=== PATIENT | male | born 1970 | race Caucasian/White ===

== ENCOUNTER 2019-12-28 04:06 | Inpatient (IN) ==
[2019-12-28] MEDS ORDERED: *HR* Dextrose 50 % in Water (Syg) 50 ML SYRINGE IVP PRN (05:17)
[2019-12-28] MEDS ORDERED: Naloxone 0.4 MG/ML INJ IVP PRN ×2 (05:17→06:24)
[2019-12-28] MEDS ORDERED: Insulin Human Regular 100 UNIT in 0.9 % Sodium Chloride 100 ML IVC SCH ×3 (05:30→16:02)
[2019-12-28] MEDS ORDERED: *HR* Heparin 5,000 UNIT/ML VIAL SQ SCH (06:00)
[2019-12-28] MEDS ORDERED: Piperacillin/Tazobactam 3.375 GM in 0.9 % Sodium Chloride Mini Bag 100 ML IVPB SCH (06:11)
[2019-12-28 07:05] LABS: Basophils % 0.2 %; Eosinophils % 0.2 %; Hematocrit 41.8 % (37.5-50.1); Hemoglobin 13.8 g/dL (12.9-16.9); Immature Granulocytes % 0.7 % (0-4); Lymphocytes % 6.1 %; Mean Corpuscular Hemoglobin 31.7 pg (28.0-33.3); Mean Corpuscular Volume 96.1 fL (83.0-100.0); Monocytes % 6.3 %; Neutrophils # 14.1 K/mcL (1.6-8.9); Platelet Count 165 K/mcL (140-400); Red Blood Count 4.35 M/mcL (4.19-5.50); Red Cell Distribution Width 13.2 % (11.5-14.5); Segmented Neutrophils % 86.5 %; White Blood Count 16.3 K/mcL (4.3-11.1)
[2019-12-28 07:09] LABS: VBG Ionized Calcium 0.64 mmol/L (1.15-1.35)
[2019-12-28] MEDS: Pantoprazole 40 MG VIAL IVP SCH ×2 (07:10→17:09)
[2019-12-28 07:11] LABS: INR 1.2; Prothrombin Time 14.1 Seconds (9.4-12.1)
[2019-12-28] MEDS: Ringers Solution, Lactated 1,000 ML IVC SCH ×4 (07:12→23:57)
[2019-12-28] MEDS: Calcium Gluconate 1gm/50mL 1 GM/50 ML BAG IVPB SCH ×6 (07:17→18:07)
[2019-12-28 07:30] LABS: Alanine Aminotransferase 31 Units/L (7-52); Albumin 3.1 g/dL (3.5-5.7); Albumin/Globulin Ratio 1.1 (1.1-2.2); Alkaline Phosphatase 58 Units/L (34-104); Aspartate Amino Transferase 26 Units/L (13-39); BUN/Creatinine Ratio 14 (6-26); Bilirubin,Total 1.3 mg/dL (0.3-1.0); Blood Urea Nitrogen 10 mg/dL (6-20); Calcium 4.8 mg/dL (8.6-10.3); Carbon Dioxide 22 mEq/L (23-29); Chloride 100 mEq/L (98-107); Globulin 2.8 g/dL (2.4-3.5); Glucose 165 mg/dL (70-105); Osmolality,Calculated 277 (280-300); Phosphorous 1.2 mg/dL (2.7-4.5); Sodium 132 mEq/L (136-145); Total Protein 5.9 g/dL (6.4-8.9); eGFR For African Americans > 60 (> 60); eGFR For Non-African Americans > 60 (> 60)
[2019-12-28] MEDS: Piperacillin/Tazobactam 3.375 GM in 0.9 % Sodium Chloride Mini Bag 100 ML IVPB SCH ×3 (08:35→23:57)
[2019-12-28] MEDS ORDERED: D10% in Water 500 ML IVC SCH ×6 (09:15→13:00)
[2019-12-28] MEDS ORDERED: Potassium Phosphate 44 MEQ in 0.9 % Sodium Chloride 250 ML IVPB ONE (09:18)
[2019-12-28 09:30] LABS: C-Reactive Protein 285 mg/L (Less than 10)
[2019-12-28 10:21] LABS: Color,Urine Orange (Yellow)
[2019-12-28 10:23] LABS: Hyaline Casts,Urine None Seen per lpf (None-Few)
[2019-12-28 10:31] LABS: Clarity,Urine Slightly Hazy (Clear)
[2019-12-28 10:52] LABS: Bacteria,Urine Few per hpf (None-Few); Squamous Epithelial Cell,Urine Few per lpf (None-Few); WBC,Urine 0-3 per hpf (0-3)
[2019-12-28 11:44] LABS: ABG Base Excess -2 mEq/L (-2 to 3); ABG HCO3 23 mEq/L (21-27); ABG Oxygen Saturation 95 % (95-98); ABG PCO2 38 mmHg (35-45); ABG PO2 77 mmHg (85-104); ABG TCO2 24 mEq/L (20-26)
[2019-12-28] MEDS ORDERED: Ringers Solution, Lactated 1,000 ML IVC SCH (12:51)
[2019-12-28] MEDS: D10% in Water 500 ML IVC SCH ×3 (13:23→22:30)
[2019-12-28 13:29] LABS: Carbon Dioxide 20 mEq/L (23-29); Chloride 102 mEq/L (98-107); Chol/HDL Ratio 8.8 (0-4.9); Cholesterol 246 mg/dL (< 200); HDL Cholesterol 28 mg/dL (40-59); Potassium 3.4 mEq/L (3.5-5.1); Sodium 131 mEq/L (136-145); Triglycerides 779 mg/dL (< 150)
[2019-12-28 13:30] LABS: Troponin I < 0.03 ng/mL (< 0.04)
[2019-12-28 14:17] LABS: Lactate Dehydrogenase 458 Units/L (140-271)
[2019-12-28 14:39] LABS: BUN/Creatinine Ratio 14 (6-26); Blood Urea Nitrogen 9 mg/dL (6-20); Calcium 5.7 mg/dL (8.6-10.3); Glucose 124 mg/dL (70-105); Lipase 332 Units/L (11-82); Magnesium 1.6 mg/dL (1.6-2.6); Osmolality,Calculated 272 (280-300); eGFR For African Americans > 60 (> 60); eGFR For Non-African Americans > 60 (> 60)
[2019-12-28] MEDS ORDERED: *HR* LORazepam 2 MG/ML VIAL IVP PRN ×3 (16:10)
[2019-12-28] MEDS: Vitamin B Complex/Vit C/Vit E 1 EACH TABLET PO SCH (16:31)
[2019-12-28] MEDS: Thiamine (B-1) 100 MG TABLET PO SCH (16:31)
[2019-12-28] MEDS: Folic Acid 1 MG TABLET PO SCH (16:31)
[2019-12-28 18:28] LABS: Adenovirus Not Detected (Not Detect); Bordetella Pertussis Not Detected (Not Detect); Chlamydophila pneumoniae Not Detected (Not Detect); Coronavirus 229E Not Detected (Not Detect); Coronavirus HKU1 Not Detected (Not Detect); Coronavirus NL63 Not Detected (Not Detect); Coronavirus OC43 Not Detected (Not Detect); Human Metapneumovirus Not Detected (Not Detect); Human Rhinovirus/Enterovirus Not Detected (Not Detect); Influenza A Subtype 2009 H1 Not Detected (Not Detect); Influenza B Not Detected (Not Detect); Mycoplasma pneumoniae Not Detected (Not Detect); Parainfluenza Virus 1 Not Detected (Not Detect); Parainfluenza Virus 2 Not Detected (Not Detect); Parainfluenza Virus 3 Not Detected (Not Detect); Parainfluenza Virus 4 Not Detected (Not Detect); Respiratory Syncytial Virus Not Detected (Not Detect)
[2019-12-28 19:36] LABS: VBG Ionized Calcium 0.73 mmol/L (1.15-1.35)
[2019-12-28 19:54] LABS: BUN/Creatinine Ratio 12 (6-26); Blood Urea Nitrogen 8 mg/dL (6-20); Calcium 5.9 mg/dL (8.6-10.3); Carbon Dioxide 21 mEq/L (23-29); Chloride 100 mEq/L (98-107); Glucose 150 mg/dL (70-105); Magnesium 1.4 mg/dL (1.6-2.6); Osmolality,Calculated 271 (280-300); Phosphorous 1.6 mg/dL (2.7-4.5); Sodium 130 mEq/L (136-145); eGFR For African Americans > 60 (> 60); eGFR For Non-African Americans > 60 (> 60)
[2019-12-28] MEDS ORDERED: Calcium Gluconate 1,000 MG/10 ML VIAL IVPB ONE (19:59)
[2019-12-28] MEDS ORDERED: Potassium Chloride 40 MEQ, Lidocaine 1% 2 ML in 0.9 % Sodium Chloride 500 ML IVPB ONE (20:06)
[2019-12-28] MEDS ORDERED: Calcium Gluconate 1gm/50mL 1 GM/50 ML BAG IVPB ONE (20:29)
[2019-12-29] MEDS: Calcium Gluconate 1gm/50mL 1 GM/50 ML BAG IVPB SCH ×7 (01:57→23:35)
[2019-12-29] MEDS: D10% in Water 500 ML IVC SCH (02:00)
[2019-12-29 04:57] LABS: Basophils % 0.3 %; Eosinophils # 0.1 K/mcL (0.0-0.6); Eosinophils % 1.2 %; Hematocrit 37.3 % (37.5-50.1); Immature Granulocytes % 0.5 % (0-4); Lymphocytes % 8.4 %; Mean Corpuscular HGB Conc 32.2 g/dL (31.6-35.5); Mean Corpuscular Hemoglobin 31.7 pg (28.0-33.3); Mean Corpuscular Volume 98.4 fL (83.0-100.0); Mean Platelet Volume 9.8 fL (9.4-12.4); Monocytes # 0.8 K/mcL (0.0-1.3); Monocytes % 6.8 %; Neutrophils # 9.9 K/mcL (1.6-8.9); Platelet Count 173 K/mcL (140-400); Red Blood Count 3.79 M/mcL (4.19-5.50); Red Cell Distribution Width 13.3 % (11.5-14.5); Segmented Neutrophils % 82.8 %
[2019-12-29 04:57] LABS: VBG Ionized Calcium 0.83 mmol/L (1.15-1.35)
[2019-12-29 05:12] LABS: BUN/Creatinine Ratio 9 (6-26); Blood Urea Nitrogen 6 mg/dL (6-20); Calcium 6.1 mg/dL (8.6-10.3); Carbon Dioxide 23 mEq/L (23-29); Chloride 98 mEq/L (98-107); Glucose 165 mg/dL (70-105); Magnesium 2.2 mg/dL (1.6-2.6); Osmolality,Calculated 271 (280-300); Potassium 3.3 mEq/L (3.5-5.1); Sodium 130 mEq/L (136-145); eGFR For African Americans > 60 (> 60); eGFR For Non-African Americans > 60 (> 60)
[2019-12-29] MEDS ORDERED: Potassium Chloride 10 MEQ in D5% in 0.9% NACL 1,000 ML IVC SCH (05:15)
[2019-12-29 05:18] LABS: Phosphorous 1.9 mg/dL (2.7-4.5)
[2019-12-29 05:25] LABS: Platelet Estimate Decreased (Normal)
[2019-12-29] MEDS ORDERED: 0.9 % Sodium Chloride w KCl 20 MEQ/1,000 ML MLS IVC SCH (05:30)
[2019-12-29] MEDS ORDERED: 0.9 % Sodium Chloride w KCl 40 MEQ/1,000 ML MLS IVC SCH (05:30)
[2019-12-29] MEDS: Pantoprazole 40 MG VIAL IVP SCH ×2 (05:46→16:07)
[2019-12-29] MEDS: Fenofibrate 54 MG TABLET PO SCH (06:41)
[2019-12-29] MEDS ORDERED: Dextrose Gel 15 GM/37.5 ML TUBE PO PRN ×2 (06:44)
[2019-12-29] MEDS ORDERED: D5% in Water 1,000 ML IVC PRN (06:44)
[2019-12-29] MEDS ORDERED: *HR* Dextrose 50 % in Water (Syg) 50 ML SYRINGE IVP PRN (06:44)
[2019-12-29] MEDS: Thiamine (B-1) 100 MG TABLET PO SCH (08:40)
[2019-12-29] MEDS: Piperacillin/Tazobactam 3.375 GM in 0.9 % Sodium Chloride Mini Bag 100 ML IVPB SCH ×3 (08:40→23:36)
[2019-12-29] MEDS: Vitamin B Complex/Vit C/Vit E 1 EACH TABLET PO SCH (08:40)
[2019-12-29] MEDS: Insulin LISPRO 300 UNITS/3 ML VIAL SQ SCH ×3 (08:40→16:06)
[2019-12-29] MEDS: Folic Acid 1 MG TABLET PO SCH (08:42)
[2019-12-29] MEDS ORDERED: Potassium Phosphate 44 MEQ in 0.9 % Sodium Chloride 250 ML IVPB ONE ×2 (08:47→22:30)
[2019-12-29 15:23] LABS: VBG Ionized Calcium 0.98 mmol/L (1.15-1.35)
[2019-12-29 15:36] LABS: Magnesium 1.9 mg/dL (1.6-2.6); Potassium 3.4 mEq/L (3.5-5.1)
[2019-12-29 20:48] LABS: VBG Ionized Calcium 0.96 mmol/L (1.15-1.35)
[2019-12-29 21:06] LABS: BUN/Creatinine Ratio 8 (6-26); Blood Urea Nitrogen 5 mg/dL (6-20); Calcium 6.9 mg/dL (8.6-10.3); Carbon Dioxide 24 mEq/L (23-29); Chloride 99 mEq/L (98-107); Glucose 146 mg/dL (70-105); Osmolality,Calculated 274 (280-300); Phosphorous 1.4 mg/dL (2.7-4.5); Potassium 3.3 mEq/L (3.5-5.1); Sodium 132 mEq/L (136-145); eGFR For African Americans > 60 (> 60); eGFR For Non-African Americans > 60 (> 60)
[2019-12-29] MEDS: Ringers Solution, Lactated 1,000 ML IVC SCH (22:43)
[2019-12-29] MEDS ORDERED: Calcium Gluconate 1,000 MG/10 ML VIAL IVPB SCH (22:45)
[2019-12-30] MEDS: Calcium Gluconate 1gm/50mL 1 GM/50 ML BAG IVPB SCH ×3 (00:06→01:50)
[2019-12-30 04:58] LABS: Basophils % 0.2 %; Eosinophils # 0.2 K/mcL (0.0-0.6); Eosinophils % 1.6 %; Hematocrit 33.2 % (37.5-50.1); Hemoglobin 10.7 g/dL (12.9-16.9); Immature Granulocytes % 0.8 % (0-4); Lymphocytes # 0.9 K/mcL (0.6-4.6); Lymphocytes % 8.7 %; Mean Corpuscular HGB Conc 32.2 g/dL (31.6-35.5); Mean Corpuscular Volume 99.4 fL (83.0-100.0); Mean Platelet Volume 9.2 fL (9.4-12.4); Monocytes % 10.5 %; Neutrophils # 7.7 K/mcL (1.6-8.9); Platelet Count 169 K/mcL (140-400); Red Blood Count 3.34 M/mcL (4.19-5.50); Red Cell Distribution Width 13.3 % (11.5-14.5); Segmented Neutrophils % 78.2 %; White Blood Count 9.8 K/mcL (4.3-11.1)
[2019-12-30 05:11] LABS: VBG Ionized Calcium 1.05 mmol/L (1.15-1.35)
[2019-12-30 05:17] LABS: BUN/Creatinine Ratio 9 (6-26); Blood Urea Nitrogen 5 mg/dL (6-20); Calcium 7.4 mg/dL (8.6-10.3); Carbon Dioxide 25 mEq/L (23-29); Chloride 98 mEq/L (98-107); Glucose 142 mg/dL (70-105); Magnesium 1.9 mg/dL (1.6-2.6); Osmolality,Calculated 272 (280-300); Phosphorous 1.9 mg/dL (2.7-4.5); Potassium 3.2 mEq/L (3.5-5.1); Sodium 131 mEq/L (136-145); eGFR For African Americans > 60 (> 60); eGFR For Non-African Americans > 60 (> 60)
[2019-12-30 05:19] LABS: Platelet Estimate Decreased (Normal)
[2019-12-30] MEDS: Pantoprazole 40 MG VIAL IVP SCH ×2 (06:01→18:18)
[2019-12-30] MEDS ORDERED: Potassium Phosphate 44 MEQ in 0.9 % Sodium Chloride 250 ML IVPB ONE ×2 (07:29→21:17)
[2019-12-30] MEDS: Vitamin B Complex/Vit C/Vit E 1 EACH TABLET PO SCH (08:44)
[2019-12-30] MEDS: Fenofibrate 54 MG TABLET PO SCH (08:44)
[2019-12-30] MEDS: Folic Acid 1 MG TABLET PO SCH (08:44)
[2019-12-30] MEDS: *HR* Enoxaparin 40 MG/0.4 ML SYRINGE SQ SCH (08:44)
[2019-12-30] MEDS: Thiamine (B-1) 100 MG TABLET PO SCH (08:44)
[2019-12-30] MEDS: Piperacillin/Tazobactam 3.375 GM in 0.9 % Sodium Chloride Mini Bag 100 ML IVPB SCH ×2 (08:45→15:53)
[2019-12-30] MEDS: Insulin LISPRO 300 UNITS/3 ML VIAL SQ SCH ×3 (09:04→16:09)
[2019-12-30 20:57] LABS: BUN/Creatinine Ratio 10 (6-26); Blood Urea Nitrogen 6 mg/dL (6-20); Calcium 7.6 mg/dL (8.6-10.3); Carbon Dioxide 28 mEq/L (23-29); Chloride 95 mEq/L (98-107); Glucose 154 mg/dL (70-105); Magnesium 1.9 mg/dL (1.6-2.6); Osmolality,Calculated 269 (280-300); Phosphorous 1.8 mg/dL (2.7-4.5); Potassium 3.1 mEq/L (3.5-5.1); Sodium 129 mEq/L (136-145); eGFR For African Americans > 60 (> 60); eGFR For Non-African Americans > 60 (> 60)
[2019-12-30] MEDS ORDERED: Potassium Chloride 40 MEQ, Lidocaine 1% 2 ML in 0.9 % Sodium Chloride 500 ML IVPB ONE (21:17)
[2019-12-30] MEDS ORDERED: 0.9 % Sodium Chloride 1,000 ML IVC SCH ×2 (21:30→21:59)
[2019-12-30] MEDS ORDERED: Calcium Gluconate 1gm/50mL 1 GM/50 ML BAG IVPB SCH (21:30)
[2019-12-31] MEDS: Piperacillin/Tazobactam 3.375 GM in 0.9 % Sodium Chloride Mini Bag 100 ML IVPB SCH ×4 (00:03→23:04)
[2019-12-31] MEDS: Calcium Gluconate 1gm/50mL 1 GM/50 ML BAG IVPB SCH ×6 (00:04→23:33)
[2019-12-31 04:29] LABS: Hematocrit 32.4 % (37.5-50.1); Hemoglobin 10.7 g/dL (12.9-16.9); Mean Corpuscular Hemoglobin 32.8 pg (28.0-33.3); Mean Corpuscular Volume 99.4 fL (83.0-100.0); Mean Platelet Volume 9.3 fL (9.4-12.4); Platelet Count 210 K/mcL (140-400); Red Blood Count 3.26 M/mcL (4.19-5.50); Red Cell Distribution Width 13.1 % (11.5-14.5); White Blood Count 12.4 K/mcL (4.3-11.1)
[2019-12-31 04:52] LABS: Alanine Aminotransferase 17 Units/L (7-52); Alkaline Phosphatase 71 Units/L (34-104); Aspartate Amino Transferase 28 Units/L (13-39); BUN/Creatinine Ratio 8 (6-26); Bilirubin,Direct 0.6 mg/dL (0.0-0.2); Bilirubin,Indirect 0.6 mg/dL (0.0-1.0); Bilirubin,Total 1.2 mg/dL (0.3-1.0); Blood Urea Nitrogen 5 mg/dL (6-20); Calcium 8.2 mg/dL (8.6-10.3); Carbon Dioxide 26 mEq/L (23-29); Chloride 96 mEq/L (98-107); Globulin 3.1 g/dL (2.4-3.5); Glucose 138 mg/dL (70-105); Magnesium 1.9 mg/dL (1.6-2.6); Osmolality,Calculated 267 (280-300); Phosphorous 2.4 mg/dL (2.7-4.5); Potassium 3.4 mEq/L (3.5-5.1); Sodium 129 mEq/L (136-145); Total Protein 6.1 g/dL (6.4-8.9); Triglycerides 269 mg/dL (< 150); eGFR For African Americans > 60 (> 60); eGFR For Non-African Americans > 60 (> 60)
[2019-12-31] MEDS: Pantoprazole 40 MG VIAL IVP SCH ×2 (05:02→17:48)
[2019-12-31] MEDS: Vitamin B Complex/Vit C/Vit E 1 EACH TABLET PO SCH (08:10)
[2019-12-31] MEDS: Thiamine (B-1) 100 MG TABLET PO SCH (08:10)
[2019-12-31] MEDS: *HR* Enoxaparin 40 MG/0.4 ML SYRINGE SQ SCH (08:10)
[2019-12-31] MEDS: Folic Acid 1 MG TABLET PO SCH (08:11)
[2019-12-31] MEDS: Fenofibrate 54 MG TABLET PO SCH (08:11)
[2019-12-31] MEDS: Insulin LISPRO 300 UNITS/3 ML VIAL SQ SCH ×4 (08:15→23:47)
[2019-12-31] MEDS ORDERED: Potassium Phosphate 44 MEQ in 0.9 % Sodium Chloride 250 ML IVPB ONE (08:18)
[2019-12-31] MEDS ORDERED: Furosemide 40 MG/4 ML VIAL IVP ONE (11:30)
[2019-12-31] MEDS: ALPRAZolam 0.25 MG TABLET PO SCH ×3 (12:07→21:25)
[2019-12-31] MEDS ORDERED: Furosemide 20 MG/2 ML VIAL IVP ONE (17:08)
[2019-12-31 19:57] LABS: BUN/Creatinine Ratio 10 (6-26); Blood Urea Nitrogen 6 mg/dL (6-20); Calcium 8.3 mg/dL (8.6-10.3); Carbon Dioxide 31 mEq/L (23-29); Chloride 92 mEq/L (98-107); Glucose 133 mg/dL (70-105); Magnesium 1.8 mg/dL (1.6-2.6); Osmolality,Calculated 274 (280-300); Phosphorous 2.6 mg/dL (2.7-4.5); Potassium 3.2 mEq/L (3.5-5.1); Sodium 132 mEq/L (136-145); eGFR For African Americans > 60 (> 60); eGFR For Non-African Americans > 60 (> 60)
[2020-01-01 05:15] LABS: Hematocrit 31.8 % (37.5-50.1); Hemoglobin 10.3 g/dL (12.9-16.9); Mean Corpuscular HGB Conc 32.4 g/dL (31.6-35.5); Mean Corpuscular Hemoglobin 31.5 pg (28.0-33.3); Mean Corpuscular Volume 97.2 fL (83.0-100.0); Mean Platelet Volume 9.7 fL (9.4-12.4); Platelet Count 177 K/mcL (140-400); Red Blood Count 3.27 M/mcL (4.19-5.50); Red Cell Distribution Width 13.1 % (11.5-14.5); White Blood Count 11.8 K/mcL (4.3-11.1)
[2020-01-01 05:35] LABS: Alanine Aminotransferase 15 Units/L (7-52); Albumin 3.1 g/dL (3.5-5.7); Alkaline Phosphatase 88 Units/L (34-104); Aspartate Amino Transferase 33 Units/L (13-39); BUN/Creatinine Ratio 11 (6-26); Bilirubin,Direct 0.3 mg/dL (0.0-0.2); Bilirubin,Indirect 0.7 mg/dL (0.0-1.0); Blood Urea Nitrogen 7 mg/dL (6-20); Calcium 8.4 mg/dL (8.6-10.3); Carbon Dioxide 30 mEq/L (23-29); Chloride 92 mEq/L (98-107); Globulin 3.2 g/dL (2.4-3.5); Glucose 110 mg/dL (70-105); Magnesium 2.1 mg/dL (1.6-2.6); Osmolality,Calculated 269 (280-300); Phosphorous 2.8 mg/dL (2.7-4.5); Potassium 3.8 mEq/L (3.5-5.1); Sodium 130 mEq/L (136-145); Total Protein 6.3 g/dL (6.4-8.9); eGFR For African Americans > 60 (> 60); eGFR For Non-African Americans > 60 (> 60)
[2020-01-01] MEDS: Pantoprazole 40 MG VIAL IVP SCH (05:52)
[2020-01-01] MEDS: Insulin LISPRO 300 UNITS/3 ML VIAL SQ SCH (07:30)
[2020-01-01] MEDS: Piperacillin/Tazobactam 3.375 GM in 0.9 % Sodium Chloride Mini Bag 100 ML IVPB SCH (07:44)
[2020-01-01] MEDS: Fenofibrate 54 MG TABLET PO SCH (07:56)
[2020-01-01] MEDS: ALPRAZolam 0.25 MG TABLET PO SCH (07:56)
[2020-01-01] MEDS: *HR* Enoxaparin 40 MG/0.4 ML SYRINGE SQ SCH (07:56)
[2020-01-01] MEDS: Thiamine (B-1) 100 MG TABLET PO SCH (07:56)
[2020-01-01] MEDS: Vitamin B Complex/Vit C/Vit E 1 EACH TABLET PO SCH (07:57)
[2020-01-01] MEDS: Folic Acid 1 MG TABLET PO SCH (07:57)
[2020-01-01 10:35] VITALS: BP 138/84
[2020-01-01] MEDS ORDERED: Isovue-370 500 ML BOTTLE IVP ONE (10:41)
[2020-01-01 11:02] LABS: Lipase 96 Units/L (11-82)
[2020-01-01] MEDS ORDERED: Insulin LISPRO 300 UNITS/3 ML VIAL SQ SCH ×2 (11:30→21:00)
[2020-01-01] MEDS ORDERED: polyethylene glycoL 3350 17 GM POWD.PACK PO PRN (11:32)
== END 2020-01-01 14:55 | disposition home or self-care (01) | DRG 871 ==
LOC: 2ANU → SUATTDRO 05:05 → 2ANU 06:30 → SUATTDRO 11:10 → 2NNU 20:33 → 3ANU 12-30 22:21
PROVIDERS: ADMIT Internal Medicine; ATTEND Internal Medicine